=== PATIENT | female | born 1985 | race Caucasian/White ===

== ENCOUNTER 2022-06-25 05:30 | Day surgery (SDC) | payer BC ==
[2022-06-24 13:13] VITALS: BP 119/77
[2022-06-24 13:26] LABS: BASOPHILS % (AUTO) 0.4 % (0.0-5.0); EOSINOPHILS % (AUTO) 5.6 % (0.0-8.0); HEMATOCRIT 46.2 % (36-48); LYMPHOCYTES % (AUTO) 33.7 % (21.0-51.0); MEAN CORPUSCULAR HEMOGLOBIN 31.2 pg (27.0-33.0); MEAN CORPUSCULAR HGB CONC 34.6 g/dL (32.0-36.0); MEAN CORPUSCULAR VOLUME 90.1 fL (79-99); MONOCYTES % (AUTO) 7.5 % (3.0-13.0); NEUTROPHILS % (AUTO) 52.5 % (40.0-77.0); PLATELET COUNT (AUTO) 284 K/uL (130-400); RED BLOOD CELL COUNT(AUTO) 5.13 MIL/uL (4.00-5.50); WHITE BLOOD COUNT (AUTO) 6.8 K/uL (4.8-10.8)
[2022-06-25] VITALS (22 sets, daily range): BP systolic 84–124; BP diastolic 52–90
[~2022-06-25] VITALS: Ht 157.5 cm; Wt 64.6 kg
[~2022-06-25 05:30] MED LIST: CALDOLOR 800MG+NS 250ML 250 ML IV SCH; CEFAZOLIN SODIUM 1 GM VIAL IVP SCH; LACTATED RINGERS 1000ML 1,000 ML IV SCH
[2022-06-25] MEDS ORDERED: BUPIVACAINE/PF 0.5% 30ML VIAL ONE (08:24)
[2022-06-25] MEDS ORDERED: SUCCINYLCHOLINE CHLORIDE 20 MG/ML 10 ML VIAL ONE (08:48)
[2022-06-25] MEDS ORDERED: PROPOFOL 10 MG/ML 20ML VIAL IV ONE (08:48)
[2022-06-25] MEDS ORDERED: ROCURONIUM 10MG/1ML SYR 10 MG/ML ML ONE ×2 (08:49→10:12)
[2022-06-25] MEDS ORDERED: FENTANYL CITRATE PF 50 MCG/1 ML 2ML VIAL ONE ×2 (08:49→09:55)
[2022-06-25] MEDS ORDERED: MIDAZOLAM HCL 1 MG/ML 2ML VIAL ONE (08:49)
[2022-06-25] MEDS ORDERED: BUPIVACAINE/EPI/PF 0.25% 10ML VIAL IJ ONE (09:10)
[2022-06-25] MEDS ORDERED: NEOSTIGMINE 5MG/5ML SYR IV ONE (11:06)
[2022-06-25] MEDS ORDERED: GLYCOPYRROLATE 1 MG/5 ML SYRINGE ONE (11:06)
[2022-06-25] MEDS ORDERED: MEPERIDINE-PF 25 MG/ML SYG ONE (11:27)
[2022-06-25] MEDS ORDERED: ONDANSETRON 4MG INJ ONE (13:25)
== END 2022-06-25 13:55 | disposition home or self-care (01) ==
LOC: DAH 05:30
PROVIDERS: ATTEND Obstetrics & Gynecology
DX: Z30.432 Encounter for removal of intrauterine contraceptive device (principal); Z30.2 Encounter for sterilization; N92.0 Excessive and frequent menstruation with regular cycle; N73.6 Female pelvic peritoneal adhesions (postinfective); Z87.891 Personal history of nicotine dependence; Z72.89 Other problems related to lifestyle; Z87.42 Personal history of other diseases of the female genital tract; Z79.899 Other long term (current) drug therapy
CPT/HCPCS: 84703; 85025; 86850; 86900; 86901; 87426; 36415; 58563; 58670; 58301; A4663; J7030; A4351; J7120; J3010 ×2; J0690; J3490 ×2; J2710; J0330; J2250; J2704; J2405; J2175; J1741; C1769 ×2; G0168; A4649; A4930; A4215; A4223; A4222; A4221